=== PATIENT | female | born 1960 | race African-American/Black ===

== ENCOUNTER 2019-04-25 17:58 | Emergency (ER) | payer MEDICARE ==
[~2019-04-25] VITALS: Ht 162.6 cm; Wt 68.0 kg
[2019-04-25] MEDS ORDERED: LIDOCAINE HCL 1% LOCAL INJ 20 ML VIAL INJ ONE (18:30)
[2019-04-25] MEDS ORDERED: TETANUS/DIPHTHERIA TOX ADULT 0.5 ML SYR IM ONE (18:30)
--- NOTE | 2019-04-25 18:48 | NUR ---
DR. ARGUELLO AT BEDSIDE FOR LAC REPAIR AT THIS TIME.
--- NOTE | 2019-04-25 19:45 | Diagnostic Imaging Report ---
Exam: Right foot 3 views History: Pain Comparison: None. Findings: No fracture or malalignment. Joint spaces preserved. No abnormal soft tissue calcification or soft tissue defect. Impression: No acute osseous abnormality Signed by: Dr. Steven Grant M.D. on 04/25/2019 7:42 PM
[2019-04-25] MEDS ORDERED: NEOMYCIN/POLYMYX/BACITR OINT 0.9 GM PKT TOP ONE (20:00)
[2019-04-25 20:20] VITALS: BP 148/73
== END 2019-04-25 20:15 | disposition home or self-care (01) ==
LOC: ER 17:58
DX: S91.114A Laceration without foreign body of right lesser toe(s) without damage to nail, initial encounter (principal); W45.8XXA Other foreign body or object entering through skin, initial encounter; Y92.488 Other paved roadways as the place of occurrence of the external cause; I10 Essential (primary) hypertension; E78.5 Hyperlipidemia, unspecified; Z85.3 Personal history of malignant neoplasm of breast; Z79.899 Other long term (current) drug therapy
CPT/HCPCS: 12001; 73660; 90471; 90714; 99284; J2001